=== PATIENT | male | born 1990 | race African-American/Black ===

== ENCOUNTER 2020-10-16 01:04 | Emergency (ER) | payer BC, OTHER ==
[~2020-10-16] VITALS: Ht 177.8 cm; Wt 78.9 kg
[2020-10-16 01:20] VITALS: BP 133/95
== END 2020-10-16 04:39 | disposition home or self-care (01) ==
LOC: ER 01:04
DX: R07.89 Other chest pain (principal); F17.210 Nicotine dependence, cigarettes, uncomplicated; V49.9XXA Car occupant (driver) (passenger) injured in unspecified traffic accident, initial encounter; Y93.89 Activity, other specified; Y92.89 Other specified places as the place of occurrence of the external cause; Y99.8 Other external cause status
CPT/HCPCS: 70450; 71250; 72125; 74176